=== PATIENT | female | born 1945 | race Caucasian/White ===

== ENCOUNTER → 2018-03-18 11:54 | Outpatient (CLI) | payer OTHER, SELFPAY ==
--- NOTE | 2018-03-18 11:59 | RAD_ITS ---
STUDY: X-RAY CHEST REASON FOR EXAM: Female, 73 years old. Cough, history of asthma. TECHNIQUE: PA and lateral views of the chest. COMPARISON: March 04, 2014 FINDINGS: The lungs are clear and expanded. There is no demonstrated pleural abnormality. Normal size heart. Normal mediastinum and kenney. Normal visualized pulmonary arteries. Normal visualized aortic arch and descending thoracic aorta. There are diffuse degenerative changes of the visualized thoracic spine. Normal visualized ribs, clavicles, and shoulders. There is no demonstrated abnormality of the visualized soft tissue structures of the upper abdomen. RAD/Chest PA and Lateral IMPRESSION: No acute cardiopulmonary process. Electronically Signed: Yumiko Adler MD at 12:37 EDT Tel , Service support ,
== END ==
PROVIDERS: Family Provider Internal Medicine; PCP Internal Medicine; Visit Provider Internal Medicine
DX: R05 Cough (principal)
CPT/HCPCS: 71046

== ENCOUNTER → 2018-06-19 13:38 | Outpatient (CLI) | payer SELFPAY ==
[2018-06-19 13:54] VITALS: BP 152/51; PULSE 61; RESP 16; O2SAT 96; BMI 33.6
--- NOTE | 2018-06-19 13:54 | CT_ITS ---
STUDY: CT CHEST WITHOUT CONTRAST REASON FOR EXAM: Female, 73 years old. Calcium scoring examination. This is an over read of this CT scan of the thorax. RADIATION DOSAGE (If Supplied By Facility): CTDIvol = ( 12.19 ) mGy, DLP = ( 195.04 ) mGycm TECHNIQUE: Transaxial imaging was performed without the administration of intravenous contrast material. Individualized dose optimization techniques were used for this CT. COMPARISON: None. FINDINGS: Minimal increased linear markings at the lung bases slightly more prominent on the left side suggestive of a linear atelectasis and/or focal scarring. There is no demonstrated pleural abnormality. Normal heart and pericardium. There are multiple small lymph nodes within the mediastinum, which are normal in size and morphology most compatible with reactive lymph hyperplasia. Normal hilar regions. Normal unenhanced pulmonary arteries. There is scattered atherosclerotic calcification of the aortic arch with tortuosity and elongation of the aortic arch and descending thoracic aorta. There are degenerative changes of the thoracic spine. Small hiatal hernia. CT/Limited Chest CT w/CCTA IMPRESSION: No acute abnormality is seen. Electronically Signed: Justin Ontiveros MD at 12:41 EDT Tel [phone], Service support ,
--- NOTE | 2018-06-19 22:04 | CA.SCORE ---
Calcium Scoring Date of Study:: 06/19/18 Coronary Calcium Scoring: Coronary calcium scoring. High-resolution computed tomographic imaging of the chest was performed on 06/19/2018 with particular attention paid to the coronary arteries. Images from the examination were analyzed for the presence and extent of coronary artery calcification using coronary artery calcification quantification software. The patient tolerated the procedure well and there were no complications noted. The results of the coronary calcification analysis demonstrated no evidence of coronary calcification noted in the left main, left anterior descending artery, left circumflex artery, and right coronary artery. The total Agagston score was noted to be 0. Conclusion coronary artery calcification evaluation with a score of 0. The above indicates low likelihood of obstructive coronary disease.
== END ==
PROVIDERS: Family Provider Internal Medicine; PCP Internal Medicine; Referring Provider Internal Medicine; Visit Provider Internal Medicine
DX: Z13.6 Encounter for screening for cardiovascular disorders (principal)
CPT/HCPCS: 75571; 76380

== ENCOUNTER → 2018-06-29 13:48 | Outpatient (CLI) | payer OTHER, SELFPAY ==
--- NOTE | 2018-06-29 13:52 | CDU_ITS ---
Reason For Study: Carotid stenosis Rt. Velocities/BP Lt. Velocities/BP Prox CCA 91.7/22.0 cm/sec. Prox CCA 110.0/24.7 cm/sec. Mid CCA 101.0/21.2 cm/sec. Mid CCA 69.6/20.4 cm/sec. Dist CCA 72.1/21.7 cm/sec. Dist CCA 74.5/15.2 cm/sec. Prox ICA 63.9/17.0 cm/sec. Prox ICA 73.9/23.5 cm/sec. Mid ICA 72.7/22.9 cm/sec. Mid ICA 68.7/14.7 cm/sec. Dist ICA 93.2/33.4 cm/sec. Dist ICA 112.0/34.5 cm/sec. Rt. ICA/CCA = .92. Lt. ICA/CCA = 1.6. Prox ECA 77.4/14.1 cm/sec. Prox ECA 59.1/12.7 cm/sec. Rt. Vert. 49.8/12.9 cm/sec. Lt. Vert. 46.9/15.8 cm/sec. Right Extracranial There is intimal thickening but no significant atherosclerotic plaque noted in the right common carotid artery. There is intimal thickening but no significant atherosclerotic plaque noted in the right internal carotid artery. There is no significant atherosclerotic plaque noted in the right external carotid artery. Antegrade flow is noted in the right vertebral artery. Left Extracranial There is intimal thickening but no significant atherosclerotic plaque noted in the left common carotid artery. There is heterogeneous, irregular atherosclerotic plaque noted in the left internal carotid artery. There is no significant atherosclerotic plaque noted in the left external carotid artery. Antegrade flow is noted in the left vertebral artery. Procedure Carotid Duplex [id number]. Exam performed in department. Interpretation Summary Mild (<50%) stenosis right extracranial internal carotid. Mild (<50%) stenosis left extracranial internal carotid. Flow within the vertebral arteries is antegrade bilaterally. Ordering Physician: Melanie Devries Referring Physician: Melanie Devries Performed By: Nany Finn RVT
--- NOTE | 2018-06-29 14:51 | BI_ITS ---
MAMMOGRAPHY - BILATERAL SCREENING REASON FOR EXAM: Female, 73 years old. Routine annual screening examination. PERTINENT HISTORY: Non-contributory. Remote right stereotactic breast biopsy. TECHNIQUE: Digital bilateral breast josefina (3D mammographic acquisition) in the CC and MLO projections. 2-D mediolateral oblique (MLO) and craniocaudad (CC) views of both breasts were obtained. CAD: Full Field Digital Mammography with Computer Added Detection was performed. COMPARISON: Comparison is made with prior study dated June 24, 2017 and May 29, 2016. FINDINGS: Breast Composition: The breasts are heterogeneously dense, which may obscure small masses. Since prior study, there is been a minimal increase in the number of calcifications in the right upper outer quadrant. The patient will be recalled for additional views including magnification spot views and 90 degree lateral view. Stable appearance of the bilateral axillary lymph nodes. No other significant abnormalities are identified. BI/SCREENING MAMM (CAD), BILAT IMPRESSION: Slight increase in the number of calcifications in the upper outer quadrant of the right breast as described. The patient will be recalled for additional views including magnification spot views and 90 degree lateral view. ASSESSMENT CATEGORY: BIRADS Category 0: Incomplete. Need additional imaging evaluation. A letter regarding these results will be sent to the patient by the facility within 30 days. Approximately 10% of breast cancers are not detected by mammography. A normal mammogram should not delay biopsy of a clinically suspicious abnormality. [id number] Electronically Signed: Justin Ontiveros MD at 13:29 EDT Tel [phone], Service support ,
== END ==
PROVIDERS: Family Provider Internal Medicine; PCP Internal Medicine; Referring Provider Internal Medicine; Visit Provider Internal Medicine
DX: Z12.31 Encounter for screening mammogram for malignant neoplasm of breast (principal); I65.23 Occlusion and stenosis of bilateral carotid arteries
CPT/HCPCS: 77063; 77067; 93880

== ENCOUNTER → 2018-07-01 13:31 | Outpatient (CLI) | payer OTHER, SELFPAY ==
--- NOTE | 2018-07-01 13:32 | BI_ITS ---
MAMMOGRAPHY - UNILATERAL DIAGNOSTIC: RIGHT BREAST REASON FOR EXAM: Female, 73 years old. Abnormal screening mammogram. PERTINENT HISTORY: Non-contributory. TECHNIQUE: Magnification spot views of the right breast as well as 90 degree lateral view were obtained. CAD: Full Field Digital Mammography with Computer Added Detection was performed. COMPARISON: Comparison is made with prior study dated June 29, 2018. FINDINGS: Breast Composition: The breasts are heterogeneously dense, which may obscure small masses. The cluster microcalcifications once again seen in the upper outer aspect of the right breast. A biopsy is recommended. No other significant abnormalities are identified. BI/DIAG MAMM W/CAD, UNILAT IMPRESSION: Suspicious calcifications in the upper outer quadrant of the right breast as described. A biopsy is recommended. ASSESSMENT CATEGORY: BIRADS Category 0: Incomplete. Need additional imaging evaluation. A letter regarding these results will be sent to the patient by the facility within 30 days. Approximately 10% of breast cancers are not detected by mammography. A normal mammogram should not delay biopsy of a clinically suspicious abnormality. Electronically Signed: Justin Ontiveros MD at 15:52 EDT Tel [phone], Service support ,
== END ==
PROVIDERS: Family Provider Internal Medicine; PCP Internal Medicine; Visit Provider Internal Medicine
DX: R92.8 Other abnormal and inconclusive findings on diagnostic imaging of breast (principal)
CPT/HCPCS: 77065

== ENCOUNTER → 2018-07-13 09:58 | Outpatient (CLI) | payer OTHER, SELFPAY ==
--- NOTE | 2018-07-13 10:01 | RAD_ITS ---
STUDY: X-RAY - LEFT KNEE REASON FOR EXAM: Female, 73 years old. Knee pain. No known trauma. TECHNIQUE: 4 view(s) of the knee, including AP and lateral weightbearing views. COMPARISON: None. FINDINGS: Normal visualized distal femur. Normal visualized proximal tibia and fibula. Normal proximal tibiofibular articulation. There is no acute fracture, dislocation or destructive osseous pathology. Normal medial femorotibial compartment. Normal lateral femorotibial compartment. Normal patellofemoral articulation. There is no demonstrated joint effusion. The soft tissue structures are unremarkable. RAD/Knee 4 or More Views IMPRESSION: Normal x-ray examination of the knee. Electronically Signed: Shaquille Mays DO at 19:03 EST Tel [phone], Service support ,
== END ==
PROVIDERS: Family Provider Internal Medicine; PCP Internal Medicine; Referring Provider Internal Medicine; Visit Provider Internal Medicine
DX: M25.562 Pain in left knee (principal)
CPT/HCPCS: 73564

== ENCOUNTER → 2018-07-16 08:37 | Outpatient (CLI) | payer OTHER, SELFPAY ==
--- NOTE | 2018-07-16 | BRBX_PTH ---
PATIENT: MARGUERITE NICHOLSON LOC: [facility] U#:[id number] AGE/SX: 80/F ROOM: RE07/16/[address]: Dr. Ramiro Dawkins MD : 1945 BED: DIS: SPEC #: [id number] RECD: 07/16/18 10:08 STATUS: IRENE LINNETTE #: [id number] DONYA: 07/16/18 00:[address]: Ramiro Dawkins DEPT: SURGICAL PATHOLOGY RECD BY: Antoni Quiroga ENTERED: 07/16/18 10:08 SP TYPE: BREAST BX OTHR DR: Dr. Melanie Devries DO Tissues: Right breast, NOS Procedures: Surgery Specimen Level IV HEADER OPERATION: Right breast stereotactic needle core biopsy PRE-OP DIAGNOSIS: Right breast calcifications TISSUE SUBMITTED: Right breast core tissue ISCHEMIC TIME: 1 minute FIXATION TIME: 10.5 hours MICROSCOPIC DIAGNOSIS Right breast, stereotactic core biopsy: Nonproliferative fibrocystic change, focal. Involutional change. Banal microcalcifications. No evidence of malignancy. AM:ramona 07/17/18 MICROSCOPIC DESCRIPTION Slides are reviewed. GROSS DESCRIPTION Received is one container labeled with the patient's name and not further designated. The specimen consists of multiple elongated fragments of beckham-yellow fibroadipose tissue that in aggregate measure 5 x 3 x 0.6 cm. The entire specimen is submitted in four cassettes. / SJ:ramona 07/16/18 TC:5 CPT: 99638
--- NOTE | 2018-07-16 11:16 | OP.PCM_ITS ---
Problem List (1) Microcalcification of right breast on mammogram Status: Acute Report of Operation Date of Procedure: 07/16/18 Pre-Operative Diagnosis: Microcalcifications of the right breast Post-Operative Diagnosis: Name Surgery/Procedure Performed:: Right stereotactic breast biopsy Type of Anesthesia:: Local Description of Procedure: Patient was brought into the mammography room placed on the supine position on the Kemp table right breast was brought down through the opening. Cc view was obtained. ?15 degrees views were obtained. I targeted on the mi crocalcifications. I prepped the breast with Betadine. I injected local. I placed the needle in the prefire position took 2 more stereo views showing the area to be adequately targeted I fired the needle took 360 degrees circumferential biopsies. I x-ray my specimen. Microcalcifications were present. I backed the needle off 8 mm and placed a Gelfoam titanium clip into the biopsy cavity. Needle was removed. I shot one more film showing the clip to be in good placement. Patient was taken out sterile dressings were applied standard mammograms were obtained she tolerated the procedure well - Admit VTE Documentation VTE Present on Admission: No VTE Mechan Device Prophylaxis: None VTE Pharm Prophylaxis ordered?: No Reason prophylaxis not ordered:: Treatment Not Indicated
== END ==
PROVIDERS: Family Provider Internal Medicine; PCP Internal Medicine; Visit Provider Surgery
DX: N60.31 Fibrosclerosis of right breast (principal); M19.90 Unspecified osteoarthritis, unspecified site; Z79.82 Long term (current) use of aspirin; Z79.899 Other long term (current) drug therapy
CPT/HCPCS: 19081; 88305; J7050; A4648

== ENCOUNTER → 2018-07-17 10:48 | Outpatient (CLI) | payer OTHER, SELFPAY ==
--- NOTE | 2018-07-17 10:57 | VDLE_ITS ---
Reason For Study: LEG PAIN RIGHT LEFT CFV is compressible, spontaneous, phasic, GSV is normal. competent and demonstrates normal CFV is compressible, spontaneous, phasic, augmentation. competent, and demonstrates normal augmentation. FV is compressible, spontaneous, phasic, competent and demonstrates normal augmentation. POP V is compressible, spontaneous, phasic, competent and demonstrates normal augmentation. T/P Trunk is compressible. PTV is compressible. LT PerV is compressible. Hypoechoic structure noted lt medial popliteal space measuring 2.5 x 1.7 x 3.9 cm. Non-vascular. <> Interpretation Summary Deep veins of the left lower extremity are patent and compressible segmentally. There is no evidence of left lower extremity deep vein thrombosis. Valvular competence appears intact within the proximal deep venous system on the left . The left greater saphenous vein appears patent and compressible segmentally. A non-vascular, hypoechoic structure is noted in the left medial popliteal space, measuring 2.5 cm x 1.7 cm x 3.9 cm. This probably represents a popliteal cyst. Clinical correlation is advised. Ordering Physician: Melanie Devries Referring Physician: Melanie Devries Performed By: Nany Finn RVT
== END ==
PROVIDERS: Family Provider Internal Medicine; PCP Internal Medicine; Referring Provider Internal Medicine; Visit Provider Internal Medicine
DX: M25.562 Pain in left knee (principal); G89.29 Other chronic pain
CPT/HCPCS: 93971

== ENCOUNTER → 2018-12-31 08:53 | Outpatient (CLI) | payer OTHER, SELFPAY ==
--- NOTE | 2018-12-31 08:56 | BI_ITS ---
MAMMOGRAPHY - UNILATERAL DIAGNOSTIC: RIGHT BREAST REASON FOR EXAM: Female, 73 years old. Six-month follow-up from biopsy PERTINENT HISTORY: Recent stereotactic biopsy TECHNIQUE: Digital examination. Mediolateral oblique (MLO) and craniocaudad (CC) views of the breast were obtained, along with three-dimensional evaluation. CAD: CAD was performed on this study. COMPARISON: 07/01/2018 FINDINGS: Breast Composition: There are scattered areas of fibroglandular density. There are no dominant masses or suspicious calcifications. Stable calcifications at the site of previous biopsy, no new suspicious calcifications or noncalcified nodules noted. No other significant abnormalities are identified. BI/DIAG MAMM W/CAD, UNILAT IMPRESSION: Stable unilateral diagnostic mammogram. Six-month follow-up bilateral mammogram recommended ASSESSMENT CATEGORY: BIRADS Category 3: Probably Benign - Short-Interval Follow-up Suggested. A letter regarding these results will be sent to the patient by the facility within 30 days. FOLLOW-UP RECOMMENDATION: Follow-up recommended within 6 months. (C) Approximately 10% of breast cancers are not detected by mammography. A normal mammogram should not delay biopsy of a clinically suspicious abnormality. Electronically Signed: Dick Rodriguez MD at 10:29 EDT , Service support ,
== END ==
PROVIDERS: Family Provider Internal Medicine; PCP Internal Medicine; Referring Provider Internal Medicine; Visit Provider Internal Medicine
DX: R92.0 Mammographic microcalcification found on diagnostic imaging of breast (principal)
CPT/HCPCS: 77061; 77065; G0279

== ENCOUNTER → 2019-06-30 09:25 | Outpatient (CLI) | payer OTHER, SELFPAY ==
--- NOTE | 2019-06-30 09:28 | BI_ITS ---
MAMMOGRAPHY - BILATERAL SCREENING REASON FOR EXAM: Female, 74 years old. Routine annual screening examination. PERTINENT HISTORY: Non-contributory. Prior right stereotactic breast biopsy. TECHNIQUE: Digital bilateral breast jus (3D mammographic acquisition) in the CC and MLO projections. 2-D mediolateral oblique (MLO) and craniocaudad (CC) views of both breasts were obtained. CAD: Full Field Digital Mammography with Computer Added Detection was performed. COMPARISON: Comparison is made with prior study June 29, 2018 and December 31, 2018. FINDINGS: Breast Composition: The breasts are heterogeneously dense, which may obscure small masses. There are no dominant masses or suspicious calcifications. A tissue clip marker is seen in the upper lateral portion of the right breast at the site of prior stereotactic biopsy. The calcific lesions have decreased in number as compared to prior study. Stable benign-appearing bilateral axillary lymph nodes. No other significant abnormalities are identified. BI/SCREEN MAMM (CAD) W/JUS BILAT IMPRESSION: Stable bilateral screening mammogram. Yearly follow-up mammogram recommended. (A) ASSESSMENT CATEGORY: BIRADS Category 2: Benign. A letter regarding these results will be sent to the patient by the facility within 30 days. Approximately 10% of breast cancers are not detected by mammography. A normal mammogram should not delay biopsy of a clinically suspicious abnormality. [id number] Electronically Signed: Justin Ontiveros, at 12:43 EDT , Service support ,
--- NOTE | 2019-06-30 09:31 | BD_ITS ---
STUDY: DUAL ENERGY X-RAY ABSORPTIOMETRY / DXA REASON FOR EXAM: Female, 74 years old. The patient is postmenopausal. Loss of height. TECHNIQUE: Bone Mineral Density (BMD) measurements of lumbar spine and bilateral hips were obtained. COMPARISON: Comparison is made with prior examination dated June 24, 2017. FINDINGS: Lumbar Spine (L1-L4): g/cm2 (1.251) / T-score (0.4) / Z-score (2.2) Findings are suggestive of normal bone density with a low fracture risk. Left Femur Total: g/cm2 (1.085) / T-score (0.6) / Z-score (2.3) Left Femoral Neck: g/cm2 (1.038) / T-score (0.0) / Z-score (1.8) Right Femur Total: g/cm2 (0.950) / T-score (-0.5) / Z-score (1.2) Right Femoral Neck: g/cm2 (0.902) / T-score (-1.0) / Z-score (0.9) The T-Scores on the most recent prior examination were: Lumbar Spine (L1-L4): There has been worsening of bone density since the previous examination. Left Femur Total: which represents an improvement of 2.6%. Right Femur Total: which represents an improvement of 1.1%. BD/DXA BONE DENS W/VERT FX ASMT IMPRESSION: The patient is considered normal as outlined below according to World Austin Organization (WHO) criteria with a low fracture risk. There has been improvement of bone density since the previous examination. Reference Information: The T-score is the number of standard deviations above or below the standard which is normal for young adults at their peak bone mineral density. The World Health Organization (WHO) interprets the T-scores as follows: Above -1 Normal bone density Between -1 and -2.5 Osteopenia Equal to / or below -2.5 Osteoporosis As a practical clinical guideline, osteopenia may be graded as follows: Mild -1 through -1.5 Moderate -1.6 through -2.0 Severe -2.1 through -2.4 The Z-score is the number of standard deviations above or below age-matched controls. A Z-score of less than -1.5 would be considered abnormal. References: 1. NIH Osteoporosis and Related Bone Diseases http://www.osteo.org 2. International Society for Clinical Densitometry http://www.iscd.org 3. National Osteoporosis Foundation http://www.nof.org Electronically Signed: Justin Ontiveros, at 12:52 EDT , Service support ,
== END ==
PROVIDERS: Family Provider Internal Medicine; PCP Internal Medicine; Referring Provider Internal Medicine; Visit Provider Internal Medicine
DX: Z12.31 Encounter for screening mammogram for malignant neoplasm of breast (principal); I65.23 Occlusion and stenosis of bilateral carotid arteries; M48.50XA Collapsed vertebra, not elsewhere classified, site unspecified, initial encounter for fracture; Z78.0 Asymptomatic menopausal state
CPT/HCPCS: 77063; 77067; 77080; 77085

== ENCOUNTER → 2019-11-04 10:52 | Outpatient (CLI) | payer OTHER, SELFPAY ==
--- NOTE | 2019-11-04 10:56 | CDU_ITS ---
Reason For Study: Stenosis Rt. Velocities/BP Lt. Velocities/BP Prox CCA 83.9/23.9 cm/sec. Prox CCA 110.1/24.3 cm/sec. Mid CCA 102.1/31.7 cm/sec. Mid CCA 84.6/27.9 cm/sec. Dist CCA 73.4/23.9 cm/sec. Dist CCA 90/24.3 cm/sec. Prox ICA 64.3/23.9 cm/sec. Prox ICA 69.1/31.1 cm/sec. Mid ICA 74.7/29.1 cm/sec. Mid ICA 92.5/28.6 cm/sec. Dist ICA 82.5/33 cm/sec. Dist ICA 88.8/32.3 cm/sec. Rt. ICA/CCA = 1.0. Lt. ICA/CCA = 1.0. Prox ECA 74.7/14.7 cm/sec. Prox ECA 99.2/24.3 cm/sec. Rt. Vert. 77.3/22.6 cm/sec. Lt. Vert. 59.3/21.2 cm/sec. Right Extracranial There is intimal thickening but no significant atherosclerotic plaque noted in the right common carotid artery. There is intimal thickening but no significant atherosclerotic plaque noted in the right internal carotid artery. There is intimal thickening but no significant atherosclerotic plaque noted in the right external carotid artery. Antegrade flow is noted in the right vertebral artery. Left Extracranial There is intimal thickening but no significant atherosclerotic plaque noted in the left common carotid artery. There is heterogeneous, irregular atherosclerotic plaque noted in the left internal carotid artery. There is intimal thickening but no significant atherosclerotic plaque noted in the left external carotid artery. Antegrade flow is noted in the left vertebral artery. Procedure Carotid Duplex [id number]. Exam performed in department. Interpretation Summary Mild (<50%) stenosis right extracranial internal carotid. Mild (<50%) stenosis left extracranial internal carotid. Flow within the vertebral arteries is antegrade bilaterally. Ordering Physician: Melanie Devries Referring Physician: Melanie Devries Performed By: Myranda Blake RVT
== END ==
PROVIDERS: PCP Internal Medicine; Referring Provider Internal Medicine; Visit Provider Internal Medicine
DX: I65.23 Occlusion and stenosis of bilateral carotid arteries (principal); I49.3 Ventricular premature depolarization; M25.511 Pain in right shoulder
CPT/HCPCS: 93880

== ENCOUNTER → 2019-11-10 08:06 | Outpatient (CLI) | payer OTHER, SELFPAY ==
--- NOTE | 2019-11-10 08:13 | RAD_ITS ---
STUDY: X-RAY - RIGHT SHOULDER REASON FOR EXAM: Female, 74 years old. Pain, decreased range of motion TECHNIQUE: 4 view(s) of the shoulder. COMPARISON: None. FINDINGS: Normal glenohumeral articulation. Normal acromioclavicular joint. Normal acromion. Normal humeral head and visualized proximal humerus. The soft tissue structures are unremarkable. Normal visualized pulmonary apex. RAD/Shoulder min 2 Views IMPRESSION: Normal x-ray examination of the shoulder. Electronically Signed: Dick Rodriguez MD at 17:52 EST , Service support ,
== END ==
PROVIDERS: PCP Internal Medicine; Referring Provider Internal Medicine; Visit Provider Internal Medicine
DX: M25.511 Pain in right shoulder (principal)
CPT/HCPCS: 73030

== ENCOUNTER → 2019-11-12 12:47 | Outpatient (CLI) | payer OTHER, SELFPAY ==
--- NOTE | 2019-11-12 12:48 | ECHOD_ITS ---
Reason For Study: ARRHYTHMIA (PVCs) Procedure This was a 2D Doppler, Color Flow transthoracic echocardiogram. Exam performed in department. Left Ventricle Normal LV size. The estimated ejection fraction is 53 %. Diastolic function is indeterminate. Left ventricular systolic function is lower limits of normal. No regional wall motion abnormalities noted. Right Ventricle Normal RV size. Normal systolic function. Atria Normal left atrium. Normal right atrium. Mitral Valve Normal mitral valve. Tricuspid Valve Normal tricuspid valve. Mild tricuspid valve insufficiency. Pulmonary artery systolic pressure is 28 mmHg. Aortic Valve Normal aortic valve. Trisinus/trileaflet aortic valve. Pulmonic Valve Normal pulmonic valve. Great Vessels Normal aortic root. The pulmonary artery is normal size. Normal inferior vena cava. Pericardium/Pleural No pericardial effusion. MMode/2D Measurements & Calculations LVIDd: 4.9 cm IVSd: 1.1 cm Ao root diam: 3.5 cm LVIDs: 3.7 cm LVPWd: 1.1 cm RVDd: 2.6 cm FS: 23.7 % LAV(MOD-bp): 57.1 ml LA A4 area: 18.6 cm2 LA dimension(2D): 3.9 cm LAV(MOD-bp) Indexed: 30.9 ml/m2 LAV(MOD-sp2): 60.5 ml LAV(MOD-sp4): 54.7 ml RA A4 area: 12.4 cm2 Doppler Measurements & Calculations Ao V2 max: 141.8 cm/sec LV V1 max: 90.1 cm/sec PA V2 max: 85.5 cm/sec Ao max P.1 mmHg LV V1 max P.2 mmHg TR max [place]: 243.9 cm/sec TR max P.0 mmHg Interpretation Summary Normal LV size. The estimated ejection fraction is 53 %. Diastolic function is indeterminate. Mild tricuspid valve insufficiency. Left ventricular systolic function is lower limits of normal. Structurally normal valves. Ordering Physician: Melanie Devries Referring Physician: Melanie Devries Performed By: Tania Ayers, KAIN, RVT
== END ==
PROVIDERS: PCP Internal Medicine; Referring Provider Internal Medicine; Visit Provider Internal Medicine
DX: M25.511 Pain in right shoulder (principal); I65.23 Occlusion and stenosis of bilateral carotid arteries; I49.3 Ventricular premature depolarization
CPT/HCPCS: 93225; 93226; 93306

== ENCOUNTER 2020-09-14 12:55 | Outpatient (CLI) | payer OTHER, SELFPAY ==
[2020-09-14 13:12] VITALS: BP 135/74; PULSE 77; RESP 16; TEMP 37.4; O2SAT 97; BMI 33.6
[2020-09-14 14:10] VITALS: BP 135/66; PULSE 77; RESP 16; TEMP 37.4; O2SAT 97
[2020-09-14 14:34] VITALS: BP 149/58; PULSE 70; RESP 18; TEMP 37.8; O2SAT 97
[2020-09-14 15:08] VITALS: BP 154/75; PULSE 71; RESP 16; TEMP 37.6; O2SAT 97
[2020-09-14] MEDS: 0.9% Saline Lock 10 ML Syringe IV (15:16)
[2020-09-14 15:38] VITALS: BP 145/83; PULSE 73; RESP 16; TEMP 37.3; O2SAT 96
[2020-09-14 16:08] VITALS: BP 139/59; PULSE 71; RESP 16; TEMP 37.4; O2SAT 97
== END 2020-09-14 16:20 | disposition home or self-care (01) ==
LOC: MS2OUT 12:58
PROVIDERS: PCP Internal Medicine; Referring Provider Nurse Practitioner Acute Care; Visit Provider Nurse Practitioner Acute Care
DX: U07.1 COVID-19 (principal)
CPT/HCPCS: 96365; J7050; M0239; Q0239

== ENCOUNTER → 2020-11-15 13:12 | Outpatient (CLI) | payer OTHER, SELFPAY ==
[2020-11-08 15:16] VITALS: BMI 34.9
--- NOTE | 2020-11-15 13:13 | ECHOD_ITS ---
Reason For Study: Dyspnea/SOB Procedure This was a 2D Doppler, Color Flow transthoracic echocardiogram. Contrast injection was performed. Exam performed in department. Left Ventricle Normal LV size. Moderate concentric left ventricular hypertrophy. The estimated ejection fraction is 40 %. Septal motion consistent with IVCD. Stage 1 diastolic dysfunction. There is mild to moderate global hypokinesis of the left ventricle. Right Ventricle Normal RV size. Normal systolic function. Atria Normal left atrium. Normal right atrium. Mitral Valve Normal mitral valve. Tricuspid Valve Normal tricuspid valve. Mild (1+) tricuspid valve insufficiency. Pulmonary artery systolic pressure is 30 mmHg. Aortic Valve Trisinus/trileaflet aortic valve. Pulmonic Valve Normal pulmonic valve. Great Vessels Normal aortic root. The pulmonary artery is normal size. Normal inferior vena cava. Pericardium/Pleural No pericardial effusion. Medication Diluted definity 3ml given slow IV push to enhance endocardial definition. MMode/2D Measurements & Calculations LVIDd: 4.7 cm IVSd: 1.4 cm Ao root diam: 3.2 cm LVIDs: 3.9 cm LVPWd: 1.3 cm RVDd: 2.5 cm FS: 18.0 % LAV(MOD-bp): 44.7 ml LVAd ap4: 34.0 cm2 SV(MOD-sp4): 48.5 ml LAV(MOD-bp) Indexed: 23.0 ml/m2 EDV(MOD-sp4): 121.8 ml LAV(MOD-sp2): 34.0 ml EDV(sp4-el): 122.5 ml LAV(MOD-sp4): 50.8 ml LVAs ap4: 24.1 cm2 ESV(MOD-sp4): 73.3 ml ESV(sp4-el): 73.4 ml EF(MOD-sp4): 39.8 % EF(sp4-el): 40.1 % SV(sp4-el): 49.1 ml LA A4 area: 18.9 cm2 RA A4 area: 9.5 cm2 Doppler Measurements & Calculations MV E max steven: 64.2 cm/sec Lat Peak E' Steven: 4.4 cm/sec Med Peak E' Steven: 3.5 cm/sec MV A max steven: 118.9 cm/sec E/E' lat: 14.6 E/E' med: 18.4 MV E/A: 0.54 Ao V2 max: 155.3 cm/sec LV V1 max: 108.0 cm/sec PA V2 max: 72.2 cm/sec Ao max P.6 mmHg LV V1 max P.7 mmHg Ao V2 mean: 108.8 cm/sec Ao mean P.2 mmHg Ao V2 VTI: 33.6 cm TR max steven: 259.5 cm/sec TR max P.9 mmHg Interpretation Summary Normal LV size. Moderate concentric left ventricular hypertrophy. The estimated ejection fraction is 40 %. Septal motion consistent with IVCD. Stage 1 diastolic dysfunction. Compared to previous the LV function has declined. Contrast injection was performed. Ordering Physician: Mahesh Catherine Referring Physician: Melanie Devries Performed By: Nancy North, KAIN, RVT
== END ==
PROVIDERS: PCP Internal Medicine; Referring Provider Internal Medicine Cardiovascular Disease; Visit Provider Internal Medicine Cardiovascular Disease
DX: R06.00 Dyspnea, unspecified (principal); R06.02 Shortness of breath
CPT/HCPCS: 93306; Q9957; A4216; C8929

== ENCOUNTER → 2020-12-04 14:09 | Outpatient (CLI) | payer OTHER, SELFPAY ==
[2020-11-08 15:16] VITALS: BMI 34.9
[2020-12-04 18:05] LABS: Anion Gap 5 (5-15); BUN 16 mg/dL (7-18); BUN/Creat Ratio 17.4 RATIO (10-20); Calcium,Total 9.1 mg/dL (8.5-10.1); Chloride 106 mmol/L (98-107); Creatinine, Serum 0.92 mg/dL (0.55-1.02); EST Glomerular Filtration Rate 63 mL/min (>60); Est Glom Filt Rate - Afr Amer 77 mL/min (>60); Glucose 125 mg/dL (74-106); Potassium 4.4 mmol/L (3.5-5.1); Sodium Level 138 mmol/L (136-145)
== END ==
PROVIDERS: PCP Internal Medicine; Referring Provider Internal Medicine Cardiovascular Disease; Visit Provider Internal Medicine Cardiovascular Disease
DX: U07.1 COVID-19 (principal); I10 Essential (primary) hypertension; I49.49 Other premature depolarization; J45.909 Unspecified asthma, uncomplicated
CPT/HCPCS: 36415; 80048; 83880

== ENCOUNTER → 2020-12-08 12:20 | Outpatient (CLI) | payer OTHER, SELFPAY ==
[2020-11-08 15:16] VITALS: BMI 34.9
== END ==
PROVIDERS: PCP Internal Medicine; Referring Provider Internal Medicine Cardiovascular Disease; Visit Provider Internal Medicine Cardiovascular Disease
DX: I42.8 Other cardiomyopathies (principal); U07.1 COVID-19; I10 Essential (primary) hypertension; J45.909 Unspecified asthma, uncomplicated; R06.00 Dyspnea, unspecified; I49.49 Other premature depolarization
CPT/HCPCS: 93225; 93226

== ENCOUNTER → 2020-12-12 12:28 | Outpatient (CLI) | payer OTHER, SELFPAY ==
[2020-12-12 11:34] VITALS: BMI 36.8
--- NOTE | 2020-12-12 12:40 | RAD_ITS ---
STUDY: X-RAY CHEST REASON FOR EXAM: Female, 75 years old. Worsening shortness of breath TECHNIQUE: PA and lateral views of the chest. COMPARISON: 2017 FINDINGS: The lungs are clear and expanded. There is no demonstrated pleural abnormality. Normal size heart. Normal mediastinum and kenney. Normal visualized pulmonary arteries. Normal visualized aortic arch and descending thoracic aorta. Normal visualized thoracic spine. Normal visualized ribs, clavicles, and shoulders. There is no demonstrated abnormality of the visualized soft tissue structures of the upper abdomen. RAD/Chest PA and Lateral IMPRESSION: No acute pulmonary process, no interval change Electronically Signed: Dick Rodriguez MD at 13:00 EDT , Service support ,
[2020-12-12 13:57] LABS: Absolute Lymphocyte Count 1.78 X10^3/uL (0.83-4.51); Basophil# 0.04 X10^3/uL; Basophil% 0.5 % (0-1); Eosinophil# 0.28 X10^3/uL; Eosinophils% 3.2 % (0-5); Hematocrit 41.7 % (37-47); Hemoglobin 13.8 g/dL (12.0-15.0); Lymphocyte # 1.78 X10^3/ul (4.0); Lymphocyte % 20.6 % (19-41); Mean Corp Hgb Conc 33.1 g/dL (32-36); Mean Corpuscular Hgb 30.4 pg (27.0-32.0); Mean Corpuscular Volume 91.9 fL (81-99); Mean Platelet Vol. 10.3 fl (6.2-12.0); Monocyte# 0.56 X10^3/uL; Monocyte% 6.5 % (0-10); NRBC Flagged by Analyzer 0 % (0-5); Neutrophil # 5.96 X10^3/uL (2.7-7.7); Platelet Count 252 K/mm3 (150-450); RBC Distribution Width CV 14.6 % (11.6-14.6); RBC Distribution Width SD 48.9 fl (35.1-43.9); Red Blood Count 4.54 M/mm3 (4.2-5.4); White Blood Count 8.6 K/mm3 (4.4-11.0)
== END ==
PROVIDERS: PCP Internal Medicine; Referring Provider Internal Medicine Cardiovascular Disease; Visit Provider Internal Medicine Cardiovascular Disease
DX: I42.8 Other cardiomyopathies (principal); R06.00 Dyspnea, unspecified; I10 Essential (primary) hypertension; I49.49 Other premature depolarization
CPT/HCPCS: 36415; 71046; 85025

== ENCOUNTER 2020-12-13 07:44 | Outpatient (RCR) | payer OTHER, SELFPAY ==
[2020-12-14 09:23] VITALS: BMI 36.5
== END 2021-02-13 23:59 ==
LOC: IMMUN 07:44
PROVIDERS: PCP Internal Medicine; Referring Provider Internal Medicine; Visit Provider Internal Medicine
DX: Z23 Encounter for immunization (principal)
CPT/HCPCS: 0001A; 91300

== ENCOUNTER 2020-12-15 10:21 | Day surgery (SDC) | payer OTHER, SELFPAY ==
[2020-12-12 11:34] VITALS: BMI 36.8
[2020-12-14 09:23] VITALS: BMI 36.5
--- NOTE | 2020-12-15 12:45 | CL.D_ITS ---
Patient Name: MARGUERITE NICHOLSON Study Date: 12/15/2020 Performing: Mahesh Catherine MD Ht: 63 inches 160 cm : 1945 Wt: 205.3 lbs 93 kg Age: 75 Gender: female BSA: 1.95 PROCEDURE(S) PERFORMED SL34-KCO/COR/LV CLINICAL PROFILE AND INDICATIONS Indications: Suspected CAD Heart Failure: None Stress/Imaging Stress/Image Study Performed: No CAD Presentations: Stable angina. CONCLUSIONS Normal coronary arteries Cardiomyopathy: Dilated RECOMMENDATIONS Medical therapy Aggressive BP treatment DESCRIPTION OF PROCEDURE The patient arrived to the procedure lab. The risks and benefits of the procedure as well as a full d escription of our services here and current unavailability of surgical backup were fully explained to the patient and/or their significant other prior to the catheterization. The Timeout was completed, verifying the correct patient and procedure. The patient's procedural site was prepped and draped in the usual fashion. Local anesthetic was given subcutaneously to right radial region with Lidocaine 2% . Using a modified Seldinger technique, arterial access was obtained via the right radial artery, a 6 Fr sheath was inserted. Left Coronary Artery selective angiography was performed in multiple views u sing a 5 Fr. 4.0 [place] catheter. Right Coronary Artery selective angiography was then performed in mu ltiple views using a 5 Fr. 4.0 [place] catheter. Left Ventriculography was performed in GRIGSBY projection using a 5 Fr. Pigtail catheter. LV to AO pullback pressures were then recorded.The arterial sheath was pulled and a TR Band was applied for hemostasis 12cc air CORONARY ANGIOGRAPHY DOMINANCE: Left Dominant LEFT HEART ASSESSMENT Left Ventricular Ejection Fraction: by LV Gram 37 % Global Hypokinesis - Moderate Depressed Left Ventricular systolic function LEFT MAIN: Angiographically normal LEFT ANTERIOR DESCENDING ARTERY: No significant disease noted CIRCUMFLEX ARTERY: No significant disease noted RIGHT CORONARY ARTERY: No significant disease noted COMPLICATIONS No Complications PROCEDURE MEDICATIONS Fentanyl 50 mcg IV Versed 1 mg IV Versed 1 mg IV Versed 1 mg IV Oxygen: 2 L/min via nasal cannula Heparin diluted in 23cc Heparinized saline. Patient given 10cc IA of this solution. 12/15/2020 12:02:4 0 Verapamil 2.5mg, Ntg 100mcgs, 2000 units of Heparin diluted in 23cc Heparinized saline. Patient give n 10cc IA of this solution. 12/15/2020 12:02:40 SUMMARY OF HEMODYNAMIC DATA Time AIR REST ECG 10:39:38 Art 116/68 (86) 12:07:01 AO 141/76 (103) SA 12:20:50 LV 126/6, 8 12:28:02 LV 134/6, 9 12:28:08 LV 145/6, 11 12:29:14 LVp 147/10, 16 12:29:36 AOp 145/70 (102) 12:29:41 Signed By Mahesh Catherine MD On 12/15/2020 12:44:36 Mahesh Catherine MD
== END 2020-12-15 14:40 | disposition home or self-care (01) ==
LOC: CLSP 10:22
PROVIDERS: PCP Internal Medicine; Referring Provider Internal Medicine Cardiovascular Disease; Visit Provider Internal Medicine Cardiovascular Disease
DX: I25.118 Atherosclerotic heart disease of native coronary artery with other forms of angina pectoris (principal); I42.0 Dilated cardiomyopathy; I49.49 Other premature depolarization; I10 Essential (primary) hypertension; J45.909 Unspecified asthma, uncomplicated; M19.90 Unspecified osteoarthritis, unspecified site; K21.9 Gastro-esophageal reflux disease without esophagitis; E66.9 Obesity, unspecified; Z79.82 Long term (current) use of aspirin; Z79.899 Other long term (current) drug therapy; Z86.16 Personal history of COVID-19
CPT/HCPCS: 93458; 99152; 99153; J7040; C1769; C1894; Q9967

== ENCOUNTER → 2021-07-06 10:51 | Outpatient (CLI) | payer OTHER, SELFPAY ==
--- NOTE | 2021-07-06 10:53 | ECHOD_ITS ---
Reason For Study: DYSPNEA Procedure This was a 2D Doppler, Color Flow transthoracic echocardiogram. Exam performed in department. Left Ventricle Normal LV size. Left ventricular systolic function is normal. The estimated ejection fraction is 48 %. Septal motion consistent with IVCD. No regional wall motion abnormalities noted. Right Ventricle Normal RV size. Normal systolic function. Atria Normal left atrium. Normal right atrium. Mitral Valve Normal mitral valve. Tricuspid Valve Normal tricuspid valve. Mild (1+) tricuspid valve insufficiency. Pulmonary artery systolic pressure is 30 mmHg. Aortic Valve Normal aortic valve. Trisinus/trileaflet aortic valve. Pulmonic Valve Normal pulmonic valve. Great Vessels Normal aortic root. The pulmonary artery is normal size. Normal inferior vena cava. Pericardium/Pleural No pericardial effusion. MMode/2D Measurements & Calculations LVIDd: 4.7 cm IVSd: 0.96 cm LAV(MOD-bp): 50.5 ml LVIDs: 3.5 cm LVPWd: 1.0 cm LAV(MOD-bp) Indexed: 25.8 ml/m2 RVDd: 3.0 cm FS: 25.3 % LAV(MOD-sp2): 51.9 ml LAV(MOD-sp4): 42.1 ml LA A4 area: 15.5 cm2 RA A4 area: 9.5 cm2 Doppler Measurements & Calculations MV E max steven: 65.7 cm/sec Lat Peak E' Steven: 7.9 cm/sec Med Peak E' Steven: 4.2 cm/sec MV A max steven: 135.3 cm/sec E/E' lat: 8.3 E/E' med: 15.7 MV E/A: 0.49 Ao V2 max: 154.3 cm/sec LV V1 max: 99.7 cm/sec PA V2 max: 89.4 cm/sec Ao max P.5 mmHg LV V1 max P.0 mmHg PI end-d steven: 86.9 cm/sec TR max steven: 254.1 cm/sec TR max P.8 mmHg ECHO/Echo Complete Interpretation Summary Normal LV size. Left ventricular systolic function is normal. The estimated ejection fraction is 48 %. Mild (1+) tricuspid valve insufficiency. Compared to previous study, the left ventricular systolic function has improved .. Ordering Physician: Mahesh Catherine Referring Physician: RACHEL MENDEZ Performed By: Julieta Crane, KAIN, RVT
== END ==
PROVIDERS: PCP Internal Medicine; Referring Provider Internal Medicine Cardiovascular Disease; Visit Provider Internal Medicine Cardiovascular Disease
DX: R06.00 Dyspnea, unspecified (principal)
CPT/HCPCS: 93306

== ENCOUNTER → 2021-07-30 08:47 | Outpatient (CLI) | payer OTHER, SELFPAY ==
--- NOTE | 2021-07-30 08:51 | CDU_ITS ---
Reason For Study: STENOSIS Rt. Velocities/BP Lt. Velocities/BP Prox CCA 96/20 cm/sec. Prox CCA 89/16 cm/sec. Mid CCA 88/20 cm/sec. Mid CCA 63/11 cm/sec. Dist CCA 71/19 cm/sec. Dist CCA 74/18 cm/sec. Prox ICA 87/13 cm/sec. Prox ICA 84/20 cm/sec. Mid ICA 44/15 cm/sec. Mid ICA 75/24 cm/sec. Dist ICA 78/29 cm/sec. Dist ICA 135/46 cm/sec. Rt. ICA/CCA = 1.0. Lt. ICA/CCA = 2.1. Prox ECA 77/12 cm/sec. Prox ECA 79/21 cm/sec. Rt. Vert. 71/17 cm/sec. Lt. Vert. 71/27 cm/sec. Right Extracranial There is homogeneous, smooth atherosclerotic plaque noted in the right common carotid artery. There is homogeneous, smooth atherosclerotic plaque noted in the right internal carotid artery. There is homogeneous, smooth atherosclerotic plaque noted in the right external carotid artery. Antegrade flow is noted in the right vertebral artery. Left Extracranial There is homogeneous, smooth atherosclerotic plaque noted in the left common carotid artery. There is heterogeneous, irregular atherosclerotic plaque noted in the left internal carotid artery. The left internal carotid artery is very tortuous. There is homogeneous, smooth atherosclerotic plaque noted in the left external carotid artery. Antegrade flow is noted in the left vertebral artery. Procedure Carotid Duplex [id number]. This is a Carotid Duplex examination using B-mode, color flow and specral Doppler. Exam finished by Kristal Crane RDCS, RVT, images #[id number]. Exam performed in department. VL/Carotid Duplex Ultrasound Interpretation Summary Mild (<50%) stenosis right extracranial internal carotid. Mild (<50%) stenosis left extracranial internal carotid. Flow within the vertebral arteries is antegrade bilaterally. Ordering Physician: Melanie Devries Referring Physician: Melanie Devries Performed By: Myranda Blake RVT
== END ==
PROVIDERS: PCP Internal Medicine; Referring Provider Internal Medicine; Visit Provider Internal Medicine
DX: I65.23 Occlusion and stenosis of bilateral carotid arteries (principal)
CPT/HCPCS: 93880

== ENCOUNTER → 2022-01-01 | Outpatient (CLI) | payer OTHER, SELFPAY ==
--- NOTE | 2022-01-01 10:25 | BI_ITS ---
MAMMOGRAPHY - BILATERAL SCREENING REASON FOR EXAM: Female, 76 years old. Routine annual screening examination. PERTINENT HISTORY: Non-contributory. History of prior right stereotactic breast biopsy. TECHNIQUE: Digital bilateral breast jus (3D mammographic acquisition) in the CC and MLO projections. 2-D mediolateral oblique (MLO) and craniocaudad (CC) views of both breasts were obtained. CAD: Full Field Digital Mammography with Computer Added Detection was performed. COMPARISON: Comparison is made with prior study dated 06/30/2019 and 12/31/2018. FINDINGS: Breast Composition: The breasts are heterogeneously dense, which may obscure small masses. There are no dominant masses or suspicious calcifications. No other significant abnormalities are identified. There has been no significant change since the prior study. BI/SCRN MAMM (CAD)W/JUS BILAT IMPRESSION: Stable bilateral screening mammogram. Yearly follow-up mammogram recommended. (A) ASSESSMENT CATEGORY: BIRADS Category 1: Negative. A letter regarding these results will be sent to the patient by the facility within 30 days. Approximately 10% of breast cancers are not detected by mammography. A normal mammogram should not delay biopsy of a clinically suspicious abnormality. [id number] Electronically Signed: Justin Ontiveros MD at 11:46 EDT ,
--- NOTE | 2022-01-01 10:28 | BD_ITS ---
STUDY: DUAL ENERGY X-RAY ABSORPTIOMETRY / DXA REASON FOR EXAM: Female, 76 years old. Z780. Patient is postmenopausal. TECHNIQUE: Bone Mineral Density (BMD) measurements of lumbar spine and bilateral hips were obtained. COMPARISON: Comparison is made with prior study dated 06/30/2019 and 06/24/2017. FINDINGS: Lumbar Spine (L1-L4): g/cm2 (1.121) / T-score (0.4) / Z-score (2.9) Findings are suggestive of normal bone density with a low fracture risk. Left Femur Total: g/cm2 (0.994) / T-score (0.4) / Z-score (2.3) Left Femoral Neck: g/cm2 (0.800) / T-score (-0.4) / Z-score (1.7) Right Femur Total: g/cm2 (0.876) / T-score (-0.5) / Z-score (1.3) Right Femoral Neck: g/cm2 (0.755) / T-score (-0.8) / Z-score (1.3) The T-Scores on the most recent prior examination were: Lumbar Spine (L1-L4): There has been worsening of bone density since the previous examination. Left Femur Total: which represents a worsening of 2.1%. Right Femur Total: which represents a worsening of 1%. BD/Dexa Bone Density Study IMPRESSION: The patient is considered normal as outlined below according to World [place] Organization (WHO) criteria with a low fracture risk. There has been worsening of bone density since the previous examination. Reference Information: The T-score is the number of standard deviations above or below the standard which is normal for young adults at their peak bone mineral density. The World Health Organization (WHO) interprets the T-scores as follows: Above -1 Normal bone density Between -1 and -2.5 Osteopenia Equal to / or below -2.5 Osteoporosis As a practical clinical guideline, osteopenia may be graded as follows: Mild -1 through -1.5 Moderate -1.6 through -2.0 Severe -2.1 through -2.4 The Z-score is the number of standard deviations above or below age-matched controls. A Z-score of less than -1.5 would be considered abnormal. References: 1. NIH Osteoporosis and Related Bone Diseases www osteo.org 2. International Society for Clinical Densitometry www iscd.org 3. National Osteoporosis Foundation www nof.org Electronically Signed: Justin Ontiveros MD at 13:05 EDT ,
== END | disposition home or self-care (01) ==
LOC: OPBD 10:23
PROVIDERS: PCP Internal Medicine; Referring Provider Internal Medicine; Visit Provider Internal Medicine
DX: Z12.31 Encounter for screening mammogram for malignant neoplasm of breast (principal); Z78.0 Asymptomatic menopausal state
CPT/HCPCS: 77063; 77067; 77080

== ENCOUNTER → 2022-10-10 | Outpatient (CLI) | payer OTHER, SELFPAY ==
--- NOTE | 2022-10-10 09:52 | CDU_ITS ---
Reason For Study: Bilateral carotid stenosis Rt. Velocities/BP Lt. Velocities/BP Prox CCA 92.7/23.4 cm/sec. Prox CCA 87.6/21.2 cm/sec. Mid CCA 85/25.6 cm/sec. Mid CCA 83.9/21.2 cm/sec. Dist CCA 57.5/15.7 cm/sec. Dist CCA 58.1/20 cm/sec. Prox ICA 65.2/17.9 cm/sec. Prox ICA 74/16.3 cm/sec. Mid ICA 80.6/26.7 cm/sec. Mid ICA 80.2/24.9 cm/sec. Dist ICA 96.1/33.5 cm/sec. Dist ICA 99.2/35.3 cm/sec. Rt. ICA/CCA = 1.13. Lt. ICA/CCA = 1.18. Prox ECA 70.7/11.3 cm/sec. Prox ECA 47.6/9.8 cm/sec. Rt. Vert. 58.1/13.9 cm/sec. Lt. Vert. 46.2/13.3 cm/sec. Right Extracranial There is homogeneous, smooth atherosclerotic plaque noted in the right common carotid artery. There is homogeneous, smooth atherosclerotic plaque noted in the right internal carotid artery. There is intimal thickening but no significant atherosclerotic plaque noted in the right external carotid artery. Antegrade flow is noted in the right vertebral artery. Left Extracranial There is homogeneous, smooth atherosclerotic plaque noted in the left common carotid artery. There is homogeneous, smooth atherosclerotic plaque noted in the left internal carotid artery. There is intimal thickening but no significant atherosclerotic plaque noted in the left external carotid artery. Antegrade flow is noted in the left vertebral artery. Procedure Carotid Duplex [id number]. This is a Carotid Duplex examination using B-mode, color flow and specral Doppler. Exam performed in department. VL/Carotid Duplex Ultrasound Interpretation Summary Mild (<50%) stenosis right extracranial internal carotid. Mild (<50%) stenosis left extracranial internal carotid. Patent and antegrade vertebrals bilaterally. Ordering Physician: Melanie Devries Referring Physician: Melanie Devries Performed By: Myranda Blake RVT
== END | disposition home or self-care (01) ==
PROVIDERS: PCP Internal Medicine; Referring Provider Internal Medicine; Visit Provider Internal Medicine
DX: I65.23 Occlusion and stenosis of bilateral carotid arteries (principal)
CPT/HCPCS: 93880

== ENCOUNTER → 2023-01-10 | Outpatient (CLI) | payer OTHER, SELFPAY ==
--- NOTE | 2023-01-10 12:04 | BI_ITS ---
MAMMOGRAPHY - BILATERAL SCREENING REASON FOR EXAM: Female, 77 years old. Routine annual screening examination. PERTINENT HISTORY: Non-contributory. History of prior right stereotactic breast biopsies. TECHNIQUE: Digital bilateral breast jus (3D mammographic acquisition) in the CC and MLO projections. 2-D mediolateral oblique (MLO) and craniocaudad (CC) views of both breasts were obtained. CAD: Full Field Digital Mammography with Computer Added Detection was performed. COMPARISON: Comparison is made with prior study January 01, 2022 and June 30, 2019. FINDINGS: Breast Composition: The breasts are heterogeneously dense, which may obscure small masses. Since prior study, there has been an increase in the microcalcifications in the deep upper medial portion of the left breast. The patient will be recalled for additional views including magnification spot views. A tissue marker is seen in the upper lateral aspect of the right breast. Stable calcifications at that site. No other significant abnormalities are identified. BI/SCRN MAMM (CAD)W/JUS BILAT IMPRESSION: Increasing numbers of the microcalcifications in the upper medial portion of the left breast as described. The patient will be recalled for additional views of the left breast including magnification views. ASSESSMENT CATEGORY: BIRADS Category 0: Incomplete. Need additional imaging evaluation. A letter regarding these results will be sent to the patient by the facility within 30 days. Approximately 10% of breast cancers are not detected by mammography. A normal mammogram should not delay biopsy of a clinically suspicious abnormality. [id number] Electronically Signed: Justin Ontiveros MD at 13:18 EDT ,
--- NOTE | 2023-01-10 12:24 | EKG12_ITS ---
Test Reason : SCREENING,DM Blood Pressure : / mmHG Vent. Rate : 068 BPM Atrial Rate : 068 BPM P-R Int : 190 ms QRS Dur : 134 ms QT Int : 448 ms P-R-T Axes : 004 -27 094 degrees QTc Int : 476 ms Normal sinus rhythm Left bundle branch block Abnormal ECG Confirmed by MARTELL ARMAS, LINDA ([id number]), website/blog editor [address] ([id number]) on 01/13/2023 2:32:59 PM Referred By: Melanie Devries Confirmed By:MARY MOURA MD
== END | disposition home or self-care (01) ==
LOC: OPBI 12:03
PROVIDERS: PCP Internal Medicine; Referring Provider Internal Medicine; Visit Provider Internal Medicine
DX: Z12.31 Encounter for screening mammogram for malignant neoplasm of breast (principal); E11.9 Type 2 diabetes mellitus without complications
CPT/HCPCS: 77063; 77067; 93005

== ENCOUNTER → 2023-01-21 | Outpatient (CLI) | payer OTHER, SELFPAY ==
--- NOTE | 2023-01-21 09:37 | BI_ITS ---
MAMMOGRAPHY - UNILATERAL DIAGNOSTIC: LEFT BREAST REASON FOR EXAM: Female, 77 years old. Abnormal screening mammogram. PERTINENT HISTORY: Non-contributory. TECHNIQUE: Compression magnification views of the left breast were obtained. CAD: Full Field Digital Mammography with Computer Added Detection was performed. COMPARISON: Comparison is made with prior mammogram dated January 10, 2023. FINDINGS: Breast Composition: The breasts are heterogeneously dense, which may obscure small masses. Increased number of microcalcifications in the deep upper medial portion of the left breast. Biopsy is recommended. No other significant abnormalities are identified. BI/DIAG MAMM W/CAD, UNILAT IMPRESSION: Increased numbers of microcalcifications in the upper medial aspect of the left breast, biopsy is recommended. ASSESSMENT CATEGORY: BIRADS Category 4: Suspicious - Biopsy Should Be Considered. A letter regarding these results will be sent to the patient by the facility within 30 days. Approximately 10% of breast cancers are not detected by mammography. A normal mammogram should not delay biopsy of a clinically suspicious abnormality. Electronically Signed: Justin Ontiveros MD at 11:02 EDT ,
== END | disposition home or self-care (01) ==
PROVIDERS: PCP Internal Medicine; Referring Provider Internal Medicine; Visit Provider Internal Medicine
DX: R92.0 Mammographic microcalcification found on diagnostic imaging of breast (principal)
CPT/HCPCS: 77065

== ENCOUNTER → 2023-11-24 | Outpatient (CLI) | payer OTHER, SELFPAY ==
--- NOTE | 2023-11-24 12:58 | CDU_ITS ---
Reason For Study: Carotid stenosis Rt. Velocities/BP Lt. Velocities/BP Prox CCA 74/10.7 cm/sec. Prox CCA 57.8/16.8 cm/sec. Mid CCA 63.6/19.2 cm/sec. Mid CCA 66.6/16 cm/sec. Dist CCA 51.3/15.4 cm/sec. Dist CCA 48.2/16 cm/sec. Prox ICA 39.4/13.7 cm/sec. Prox ICA 59.6/19.5 cm/sec. Mid ICA 49.3/15.2 cm/sec. Mid ICA 70/23.8 cm/sec. Dist ICA 88.3/25.6 cm/sec. Dist ICA 94.9/36.6 cm/sec. Rt. ICA/CCA = 1.39. Lt. ICA/CCA = 1.64. Prox ECA 52.2/7.8 cm/sec. Prox ECA 43/9 cm/sec. Rt. Vert. 47.4/10.7 cm/sec. Lt. Vert. 35.2/7.8 cm/sec. Right Extracranial There is homogeneous, smooth atherosclerotic plaque noted in the right common carotid artery. There is homogeneous, smooth atherosclerotic plaque noted in the right internal carotid artery. There is intimal thickening but no significant atherosclerotic plaque noted in the right external carotid artery. Antegrade flow is noted in the right vertebral artery. Left Extracranial There is homogeneous, smooth atherosclerotic plaque noted in the left common carotid artery. There is heterogeneous, irregular atherosclerotic plaque noted in the left internal carotid artery. There is intimal thickening but no significant atherosclerotic plaque noted in the left external carotid artery. Antegrade flow is noted in the left vertebral artery. Procedure Carotid Duplex [id number]. This is a Carotid Duplex examination using B-mode, color flow and specral Doppler. Exam performed in department. VL/Carotid Duplex Ultrasound Interpretation Summary Mild (<50%) stenosis right extracranial internal carotid. Mild (<50%) stenosis left extracranial internal carotid. Patent and antegrade vertebrals bilaterally. Ordering Physician: Melanie Devries Referring Physician: Melanie Devries Performed By: Myranda Blake RVT
== END | disposition home or self-care (01) ==
LOC: CVS 12:57
PROVIDERS: PCP Internal Medicine; Referring Provider Internal Medicine; Visit Provider Internal Medicine
DX: I65.23 Occlusion and stenosis of bilateral carotid arteries (principal)
CPT/HCPCS: 93880

== ENCOUNTER → 2024-04-14 | Outpatient (CLI) | payer OTHER, SELFPAY ==
--- NOTE | 2024-04-14 12:54 | BD_ITS ---
STUDY: DUAL ENERGY X-RAY ABSORPTIOMETRY / DXA REASON FOR EXAM: Female, 79 years old. Z780 TECHNIQUE: Bone Mineral Density (BMD) measurements of lumbar spine and bilateral hips were obtained. COMPARISON: Comparison is made with prior study January 01, 2022. FINDINGS: Lumbar Spine (L1-L4): g/cm2 (1.116) / T-score (0.6) / Z-score (3.2) Findings are suggestive of normal bone density with a low fracture risk. Left Femur Total: g/cm2 (0.842) / T-score (-0.8) / Z-score (1.1) Left Femoral Neck: g/cm2 (0.738) / T-score (-1.0) / Z-score (1.2) Right Femur Total: g/cm2 (0.771) / T-score (-1.4) / Z-score (0.6) Right Femoral Neck: g/cm2 (0.670) / T-score (-1.6) / Z-score (0.6) The T-Scores on the most recent prior examination were: Lumbar Spine (L1-L4): There has been worsening of bone density since the previous examination. Left Femur Total: which represents a worsening of 15.4%. Right Femur Total: which represents a worsening of 12%. BD/Dexa Bone Density Study IMPRESSION: The patient is considered osteopenic as outlined below according to World [place] Organization (WHO) criteria with a moderate fracture risk. There has been worsening of bone density since the previous examination. Reference Information: The T-score is the number of standard deviations above or below the standard which is normal for young adults at their peak bone mineral density. The World Health Organization (WHO) interprets the T-scores as follows: Above -1 Normal bone density Between -1 and -2.5 Osteopenia Equal to / or below -2.5 Osteoporosis As a practical clinical guideline, osteopenia may be graded as follows: Mild -1 through -1.5 Moderate -1.6 through -2.0 Severe -2.1 through -2.4 The Z-score is the number of standard deviations above or below age-matched controls. A Z-score of less than -1.5 would be considered abnormal. References: 1. NIH Osteoporosis and Related Bone Diseases www osteo.org 2. International Society for Clinical Densitometry www iscd.org 3. National Osteoporosis Foundation www nof.org Electronically Signed: Justin Ontiveros MD at 9:43 EDT ,
--- NOTE | 2024-04-14 12:54 | BI_ITS ---
MAMMOGRAPHY - BILATERAL SCREENING REASON FOR EXAM: Female, 79 years old. Routine annual screening examination. PERTINENT HISTORY: Non-contributory. Prior right stereotactic breast biopsy. TECHNIQUE: Digital bilateral breast jus (3D mammographic acquisition) in the CC and MLO projections. 2-D mediolateral oblique (MLO) and craniocaudad (CC) views of both breasts were obtained. CAD: Full Field Digital Mammography with Computer Added Detection was performed. COMPARISON: Comparison is made with prior study January 10, 2023 and January 01, 2022. FINDINGS: Breast Composition: The breasts are heterogeneously dense, which may obscure small masses. There are no dominant masses or suspicious calcifications. The patient is status post posterior thigh. Biopsy with clip placement in the microcalcifications in the deep upper medial aspect of the left breast. The number of calcifications have decreased as compared to prior study. Stable bilateral fat-containing axillary lymph nodes. No other significant abnormalities are identified. BI/SCRN MAMM (CAD)W/JUS BILAT IMPRESSION: Stable bilateral screening mammogram. Yearly follow-up mammogram recommended. (A) ASSESSMENT CATEGORY: BIRADS Category 2: Benign. A letter regarding these results will be sent to the patient by the facility within 30 days. Approximately 10% of breast cancers are not detected by mammography. A normal mammogram should not delay biopsy of a clinically suspicious abnormality. [id number] Electronically Signed: Justin Ontiveros MD at 13:58 EDT ,
== END | disposition home or self-care (01) ==
LOC: OPBD 12:53
PROVIDERS: PCP Internal Medicine; Referring Provider Internal Medicine; Visit Provider Internal Medicine
DX: Z12.31 Encounter for screening mammogram for malignant neoplasm of breast (principal); Z78.0 Asymptomatic menopausal state
CPT/HCPCS: 77063; 77067; 77080

== ENCOUNTER → 2024-12-20 | Outpatient (CLI) | payer OTHER, SELFPAY ==
--- NOTE | 2024-12-20 10:00 | CDU_ITS ---
Reason For Study Reason For Study: Bilateral carotid stenosis Rt. Velocities/BP Lt. Velocities/BP Prox CCA 77.8/19.2 cm/sec. Prox CCA 91.6/17.9 cm/sec. Mid CCA 70.2/16.3 cm/sec. Mid CCA 70.7/19 cm/sec. Dist CCA 53.2/13.5 cm/sec. Dist CCA 57.5/13.5 cm/sec. Prox ICA 46.5/16 cm/sec. Prox ICA 75.1/17.9 cm/sec. Mid ICA 60.4/18.6 cm/sec. Mid ICA 79.5/20.1 cm/sec. Dist ICA 98.1/30 cm/sec. Dist ICA 84.2/27.5 cm/sec. Rt. ICA/CCA = 1.40. Lt. ICA/CCA = 1.19. Prox ECA 61.7/9.7 cm/sec. Prox ECA 47.6/10.2 cm/sec. Rt. Vert. 69.6/14.6 cm/sec. Lt. Vert. 43/13.3 cm/sec. Right Extracranial There is homogeneous, smooth atherosclerotic plaque noted in the right common carotid artery. There is heterogeneous, irregular atherosclerotic plaque noted in the right internal carotid artery. There is intimal thickening but no significant atherosclerotic plaque noted in the right external carotid artery. Antegrade flow is noted in the right vertebral artery. Left Extracranial There is homogeneous, smooth atherosclerotic plaque noted in the left common carotid artery. There is heterogeneous, irregular atherosclerotic plaque noted in the left internal carotid artery. There is intimal thickening but no significant atherosclerotic plaque noted in the left external carotid artery. Antegrade flow is noted in the left vertebral artery. Procedure Carotid Duplex 59166. This is a Carotid Duplex examination using B-mode, color flow and specral Doppler. Exam performed in department. VL/Carotid Duplex Ultrasound Interpretation Summary Mild (<50%) stenosis right extracranial internal carotid. Mild (<50%) stenosis left extracranial internal carotid. Patent and antegrade vertebrals bilaterally. Ordering Physician: Melanie Devries Referring Physician: Melanie Devries Performed By: Myranda Blake RVT
== END | disposition home or self-care (01) ==
LOC: CVS 10:00
PROVIDERS: PCP Internal Medicine; Referring Provider Internal Medicine; Visit Provider Internal Medicine
DX: I65.23 Occlusion and stenosis of bilateral carotid arteries (principal)
CPT/HCPCS: 93880

== ENCOUNTER → 2025-04-28 | Outpatient (CLI) | payer OTHER, SELFPAY ==
--- NOTE | 2025-04-28 08:07 | BI_ITS ---
EXAM: SCRN MAMM (CAD)W/JUS BILAT DATE: 04/28/2025 CLINICAL HISTORY: F, Age 80 y/o , SCREENING No family history. Prior right stereotactic breast biopsy. TECHNIQUE: SCRN MAMM (CAD)W/JUS BILAT COMPARISON: Prior exam(s) dated April 14, 2024.. FINDINGS: TISSUE DENSITY: The breasts are heterogeneously dense, which may obscure small masses. Bilateral Breast Mammographic Findings: No significant masses, calcifications or other abnormalities are identified. A tissue clip marker is once again seen in the nodular dense with microcalcifications in the upper lateral deep aspect of the right breast. 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 Stable calcifications in the central slightly medial aspect of the left breast. Stable bilateral fat containing axillary lymph nodes. No suspicious masses, areas of developing architectural distortion, or suspicious calcifications. There has been no significant interval change. BI/SCRN MAMM (CAD)W/JUS BILAT IMPRESSION: Stable examination. OVERALL FINAL ASSESSMENT BI-RADS 2: BENIGN RECOMMENDATION: Routine annual follow-up in 1 Year A letter with findings and recommendations will be mailed to the patient. Reading Location: [id number]
== END | disposition home or self-care (01) ==
PROVIDERS: PCP Internal Medicine; Referring Provider Internal Medicine; Visit Provider Internal Medicine
DX: Z12.31 Encounter for screening mammogram for malignant neoplasm of breast (principal)
CPT/HCPCS: 77063; 77067

== ENCOUNTER → 2025-08-08 | Outpatient (CLI) | payer OTHER, SELFPAY ==
--- NOTE | 2025-08-08 10:42 | MRI_ITS ---
PROCEDURE: BRAIN W/WO CONTRAST 08/08/2025 REASON FOR EXAM: MRI OF BRAIN WITHOUT THEN WITH CONTRAST; RULE OUT MS TECHNIQUE: Procedure Code: [id number] Modality: MR Procedure: BRAIN W/WO CONTRAST Multiplanar and multisequence images were obtained. CONTRAST: Clariscan VOLUME: 14 mL COMPARISON: None available. FINDINGS: No acute infarct or hemorrhage. Nonspecific foci of periventricular and subcortical T2/FLAIR white matter hyperintensities in the cerebral hemispheres likely reflect chronic microvascular ischemic changes. No enhancing intracranial lesion. No extra-axial fluid collection. No significant mass effect or herniation of the brain. The ventricular system and sulci/fissures are within expected limits of size and configuration for the patient's stated age. The basal cisterns are patent. The intracranial large vessel arterial flow voids are maintained. The mastoid air cells clear. There is scattered paranasal mucosal thickening. The orbits are unremarkable. The calvarial bone marrow signal is within normal limits. MRI/Brain W/WO Contrast IMPRESSION: No convincing evidence for demyelinating disease. No acute infarct, hemorrhage , significant mass effect, or enhancing intracranial lesion. Chronic microvascular ischemic changes. Reading Location: [id number]
== END | disposition home or self-care (01) ==
PROVIDERS: PCP Internal Medicine; Referring Provider Internal Medicine; Visit Provider Internal Medicine
DX: R20.2 Paresthesia of skin (principal)
CPT/HCPCS: 70553; A9575; A4216

== ENCOUNTER → 2025-08-24 | Outpatient (CLI) | payer OTHER, SELFPAY ==
--- NOTE | 2025-08-24 07:48 | CT_ITS ---
PROCEDURE: LIMITED CHEST CT CARDIAC ONLY 08/24/2025 REASON FOR EXAM: HYPERLIPIDEMIA TECHNIQUE: Procedure Code: [id number] Modality: CT Procedure: LIMITED CHEST CT CARDIAC ONLY CONTRAST: None One or more dose reduction techniques were used (e.g., Automated exposure control, adjustment of the mA and/or kV according to patient size, use of iterative reconstruction technique). RADIATION DOSE SUMMARY: CTDlvol: 12.19 mGy DLP: 170.66 mGycm COMPARISON: None FINDINGS: Mild coronary artery calcification. Calcification of the thoracic aorta. The heart is nonenlarged. Findings suggestive of mild bibasilar linear scarring. CT/Limited Chest CT Cardiac Only IMPRESSION: Mild degree of coronary artery calcification. Reading Location: [id number]
--- NOTE | 2025-08-24 17:47 | CA.SCORE ---
Calcium Scoring Date of Study:: 08/24/25 Indications Indications: HTN Coronary Calcium Scoring: High-resolution Computed Tomographic imaging of the chest was performed on [08/24/25 ], with particular attention paid to the coronary arteries. Images from the examination were analyzed for the presence and extent of coronary artery calcification , using coronary calcium quantification software. The patient tolerated the procedure well and there were no complications. The results of the coronary calcification analysis are provided below. Findings Coronary Artery Left Main (LM): 0 Left Anterior Descending (LAD): 5.18 Left Circumflex (LCX): 0 Right Coronary Artery (RCA): 0 Total Agatston Score: 5.18 Percentile Ranking: less than 10 Calcium Scoring Interpretation: Different methods to categorize the overall amount of coronary plaque. Overall amount CAC SIS Visual of coronary plaque P1 Mild -100 <2 1-2 vessels with mild amount of plaque P2 Moderate 101-300 3-4 1-2 vessels with moderate amount, 3 vessels with mild amount of plaque P3 Severe 301-999 5-7 3 vessels with moderate amount, 1 vessel with severe amount of plaque P4 Extensive >1000 >8 2-3 vessels with severe amount of plaque Calcium Score: Mild: 1-2 vessels w/mild amount of plaque Conclusion: Minimal atherosclerotic plaquing noted
== END | disposition home or self-care (01) ==
PROVIDERS: PCP Internal Medicine; Referring Provider Internal Medicine; Visit Provider Internal Medicine
DX: E78.5 Hyperlipidemia, unspecified (principal)
CPT/HCPCS: 75571; 76380